=== PATIENT | female | born 1985 | race Caucasian/White ===

== ENCOUNTER 2018-01-14 15:45 | Emergency (ER) | payer MEDICARE, MEDICAID ==
[2018-01-14] MEDS: NORCO, ANEXSIA 5/325MG TABLET (HYDROcodone/ACETAMINOPHEN) PO (17:21)
[2018-01-14] MEDS: AUGMENTIN 875 MG TAB PO (17:21)
== END 2018-01-14 17:29 | disposition home or self-care (01) ==
LOC: M ED 15:45
DX: K05.00 Acute gingivitis, plaque induced (principal); F17.200 Nicotine dependence, unspecified, uncomplicated
CPT/HCPCS: 99282